=== PATIENT | male | born 1955 | race Two or more races ===

== ENCOUNTER 2021-07-02 10:38 | Emergency (ER) | payer OTHER ==
[~2021-07-02] VITALS: Ht 165.1 cm; Wt 68.9 kg
[2021-07-02] MEDS ORDERED: ZOLPIDEM TARTRA10 MG (10:52)
[2021-07-02] MEDS ORDERED: WAL-FINATE4 MG (10:54)
[2021-07-02] MEDS ORDERED: WALFARINA (11:00)
== END 2021-07-02 18:54 | disposition home or self-care (01) ==
LOC: ER 10:38
DX: R55 Syncope and collapse (principal); Z79.01 Long term (current) use of anticoagulants; Z95.4 Presence of other heart-valve replacement; Z20.822 Contact with and (suspected) exposure to COVID-19